=== PATIENT | female | born 1945 | race Caucasian/White ===

== ENCOUNTER → 2018-12-26 | Outpatient (CLI) | payer OTHER | END | disposition home or self-care (01) | LOC: SHCH 10:54 | PROVIDERS: ATTEND Internal Medicine Cardiovascular Disease | DX: I10 Essential (primary) hypertension (principal) | CPT/HCPCS: 93306 ==

== ENCOUNTER 2021-06-22 09:19 | Emergency (ER) | payer MEDICARE, OTHER ==
[~2021-06-22] VITALS: Ht 157.5 cm; Wt 56.7 kg
[2021-06-22] MEDS ORDERED: ACETAMINOPHEN 500 MG TABLET PO SCH (11:00)
[2021-06-22 11:10] LABS: BASOPHILS % (AUTO) 0.3 % (0.0-5.0); HEMATOCRIT 36.7 % (36-48); LYMPHOCYTES % (AUTO) 14.4 % (21.0-51.0); MEAN CORPUSCULAR HEMOGLOBIN 32.5 pg (27.0-33.0); MEAN CORPUSCULAR HGB CONC 33.5 g/dL (32.0-36.0); MEAN CORPUSCULAR VOLUME 96.8 fL (79-99); MONOCYTES % (AUTO) 4.3 % (3.0-13.0); NEUTROPHILS % (AUTO) 80.4 % (40.0-77.0); PLATELET COUNT (AUTO) 184 K/uL (130-400); RED BLOOD CELL COUNT(AUTO) 3.79 MIL/uL (4.00-5.50)
[2021-06-22 11:15] LABS: CREATININE 0.7 mg/dL (0.5-1.5); POTASSIUM 4.6 mmol/L (3.5-5.1)
[2021-06-22 11:19] LABS: ALBUMIN 4.2 g/dL (3.5-5.0); BILIRUBIN,TOTAL 0.4 mg/dL (0.2-1.0); TOTAL PROTEIN, SERUM 7.7 g/dL (6.0-8.3)
[2021-06-22 12:36] VITALS: BP 126/68
[2021-06-22 12:59] LABS: APPEARANCE,URINE Clear (CLEAR); BILIRUBIN,URINE Negative (NEGATIVE); COLOR,URINE Yellow (YELLOW); GLUCOSE, URINE (UA) Negative (NEGATIVE); KETONES,URINE Negative (NEGATIVE); LEUKOCYTE ESTERASE ,URINE Trace (NEGATIVE); NITRATE,URINE Negative (NEGATIVE); OCCULT BLOOD,URINE Negative (NEGATIVE); PH,URINE 7.5 (5.0-8.0); PROTEIN,URINE Negative (NEGATIVE); UROBILINOGEN,URINE 0.2 mg/dL (0.2-1.0)
[2021-06-22] MEDS ORDERED: ACET-66 PO (13:13)
[2021-06-22 13:23] LABS: BACTERIA,URINE Few /HPF (None Seen); RBC,URINE 0-1 /HPF (0-1); SQUAMOUS EPITHELIAL CELL,UR 0-2 /HPF (0-2); WBC,URINE 0-1 /HPF (0-1)
[2021-06-22 14:20] VITALS: BP 126/78
== END 2021-06-22 14:22 | disposition home or self-care (01) ==
LOC: EDH 09:19
DX: M25.511 Pain in right shoulder (principal); G89.29 Other chronic pain; R30.0 Dysuria; I10 Essential (primary) hypertension; E78.00 Pure hypercholesterolemia, unspecified; E11.9 Type 2 diabetes mellitus without complications
CPT/HCPCS: 36415; 70450; 71045; 73030; 80053; 81001; 84484; 85025; 93005

== ENCOUNTER 2022-03-21 20:10 | Emergency (ER) | payer MEDICARE ==
[~2022-03-21] VITALS: Ht 160 cm; Wt 78.0 kg
[~2022-03-21 20:10] MED LIST: ACET-66 PO
[2022-03-21 20:40] LABS: HEMATOCRIT 41.9 % (36-48); MEAN CORPUSCULAR HEMOGLOBIN 32.7 pg (27.0-33.0); MEAN CORPUSCULAR HGB CONC 32.5 g/dL (32.0-36.0); MEAN CORPUSCULAR VOLUME 100.7 fL (79-99); PLATELET COUNT (AUTO) 209 K/uL (130-400); RED BLOOD CELL COUNT(AUTO) 4.16 MIL/uL (4.00-5.50); RED CELL DISTRIBUTION WIDTH 12.4 % (11.0-15.5)
[2022-03-21 20:51] LABS: CREATININE 0.7 mg/dL (0.5-1.5); POTASSIUM 3.9 mmol/L (3.5-5.1)
[2022-03-21 21:00] LABS: ALBUMIN 4.3 g/dL (3.5-5.0); BILIRUBIN,TOTAL 0.2 mg/dL (0.2-1.0); TOTAL PROTEIN, SERUM 7.8 g/dL (6.0-8.3)
[2022-03-21 21:07] LABS: BAND NEUTROPHILS % (MANUAL) 4 % (0-2); EOSINOPHILS % (MANUAL) 3 % (1-6); LYMPHOCYTES % (MANUAL) 15 % (22-44); MAN.DIFF COMMENT-IMPRESSION MANUAL DIFFERENTIAL; MONOCYTES % (MANUAL) 4 % (2-9); REACTIVE LYMPHOCYTES 4 % (0-0); SEGMENTED NEUTROPHILS % 70 % (40-70)
[2022-03-21 21:10] LABS: PLATELET MORPHOLOGY COMMENT PLT CLUMPS PRESENT
[2022-03-21 21:18] LABS: APPEARANCE,URINE Clear (CLEAR); BILIRUBIN,URINE Negative (NEGATIVE); COLOR,URINE Yellow (YELLOW); GLUCOSE, URINE (UA) Negative (NEGATIVE); KETONES,URINE Negative (NEGATIVE); LEUKOCYTE ESTERASE ,URINE Negative (NEGATIVE); NITRATE,URINE Negative (NEGATIVE); OCCULT BLOOD,URINE Negative (NEGATIVE); PROTEIN,URINE Negative (NEGATIVE); UROBILINOGEN,URINE 0.2 mg/dL (0.2-1.0)
[2022-03-21 22:40] VITALS: BP 140/60
== END 2022-03-21 22:47 | disposition home or self-care (01) ==
LOC: EDH 20:10
DX: I10 Essential (primary) hypertension (principal); Z63.4 Disappearance and death of family member; E78.00 Pure hypercholesterolemia, unspecified; Z60.2 Problems related to living alone
CPT/HCPCS: 36415; 71045; 80053; 81003; 84484; 85025; 93005

== ENCOUNTER 2022-06-26 14:03 | Emergency (ER) | payer MEDICARE ==
[~2022-06-26] VITALS: Ht 154.9 cm; Wt 54.4 kg
[2022-06-26] MEDS ORDERED: LACTATED RINGERS 1000ML 1,000 ML IV ONE (14:30)
[2022-06-26 15:01] LABS: BASOPHILS % (AUTO) 0.7 % (0.0-5.0); EOSINOPHILS % (AUTO) 2.3 % (0.0-8.0); LYMPHOCYTES % (AUTO) 19.5 % (21.0-51.0); MEAN CORPUSCULAR HEMOGLOBIN 32.9 pg (27.0-33.0); MEAN CORPUSCULAR HGB CONC 33.3 g/dL (32.0-36.0); MEAN CORPUSCULAR VOLUME 98.7 fL (79-99); NEUTROPHILS % (AUTO) 67.3 % (40.0-77.0); PLATELET COUNT (AUTO) 187 K/uL (130-400); RED BLOOD CELL COUNT(AUTO) 3.95 MIL/uL (4.00-5.50); RED CELL DISTRIBUTION WIDTH 12.3 % (11.0-15.5); WHITE BLOOD COUNT (AUTO) 4.4 K/uL (4.8-10.8)
[2022-06-26 15:09] LABS: CREATININE 0.8 mg/dL (0.5-1.5); POTASSIUM 3.6 mmol/L (3.5-5.1)
[2022-06-26 15:20] LABS: APPEARANCE,URINE CLEAR (CLEAR); BILIRUBIN,URINE NEGATIVE (NEGATIVE); COLOR,URINE YELLOW (YELLOW); GLUCOSE, URINE (UA) NEGATIVE (NEGATIVE); KETONES,URINE NEGATIVE (NEGATIVE); LEUKOCYTE ESTERASE ,URINE NEGATIVE (NEGATIVE); NITRATE,URINE NEGATIVE (NEGATIVE); OCCULT BLOOD,URINE NEGATIVE (NEGATIVE); PH,URINE 7.5 (5.0-8.0); PROTEIN,URINE NEGATIVE (NEGATIVE); UROBILINOGEN,URINE 0.2 mg/dL (0.2-1.0)
[2022-06-26 15:21] LABS: ALBUMIN 4.3 g/dL (3.5-5.0); TOTAL PROTEIN, SERUM 7.7 g/dL (6.0-8.3)
[2022-06-26 15:38] VITALS: BP 148/64
== END 2022-06-26 15:49 | disposition home or self-care (01) ==
LOC: EDH 14:03
DX: R42 Dizziness and giddiness (principal); R53.1 Weakness; R63.0 Anorexia; R61 Generalized hyperhidrosis; F32.A Depression, unspecified; Z63.4 Disappearance and death of family member; E03.9 Hypothyroidism, unspecified; E11.9 Type 2 diabetes mellitus without complications; E78.00 Pure hypercholesterolemia, unspecified; I10 Essential (primary) hypertension; Z68.22 Body mass index [BMI] 22.0-22.9, adult
CPT/HCPCS: 99285; 96360; 71045; 84484; 80053; 85025; 81003; 36415; 93005; J7120

== ENCOUNTER 2022-09-24 17:07 | Emergency (ER) | payer MEDICARE ==
[~2022-09-24] VITALS: Ht 154.9 cm; Wt 52.6 kg
[2022-09-24 17:37] LABS: APPEARANCE,URINE CLEAR (CLEAR); BILIRUBIN,URINE NEGATIVE (NEGATIVE); COLOR,URINE COLORLESS (YELLOW); GLUCOSE, URINE (UA) NEGATIVE (NEGATIVE); KETONES,URINE NEGATIVE (NEGATIVE); LEUKOCYTE ESTERASE ,URINE NEGATIVE Leu/uL (NEGATIVE); NITRATE,URINE NEGATIVE (NEGATIVE); OCCULT BLOOD,URINE NEGATIVE (NEGATIVE); PH,URINE 5.5 (5.0-8.0); PROTEIN,URINE NEGATIVE (NEGATIVE); UROBILINOGEN,URINE 0.2 mg/dL (0.2-1.0)
[2022-09-24 17:39] LABS: RBC,URINE 0-1 /HPF (0-1); SQUAMOUS EPITHELIAL CELL,UR RARE /HPF (0-2); WBC,URINE 0-1 /HPF (0-1)
[2022-09-24] MEDS ORDERED: SULF1TAB42 PO (17:45)
[2022-09-24 17:52] VITALS: BP 121/68
== END 2022-09-24 17:53 | disposition home or self-care (01) ==
LOC: EDH 17:07
DX: N39.0 Urinary tract infection, site not specified (principal); I10 Essential (primary) hypertension; E78.00 Pure hypercholesterolemia, unspecified; E11.9 Type 2 diabetes mellitus without complications; E03.9 Hypothyroidism, unspecified
CPT/HCPCS: 81001

== ENCOUNTER 2022-10-08 20:59 | Emergency (ER) | payer MEDICARE ==
[~2022-10-08] VITALS: Ht 154.9 cm; Wt 53.5 kg
[~2022-10-08 20:59] MED LIST changes: +SULF1TAB42 PO
[2022-10-08] MEDS ORDERED: 0.9%NACL 1000ML 1,000 ML IV ONE (21:30)
[2022-10-08] MEDS ORDERED: ONDANSETRON 4MG INJ IVP ONE (21:30)
[2022-10-08 21:42] LABS: BASOPHILS % (AUTO) 0.6 % (0.0-5.0); EOSINOPHILS % (AUTO) 3.1 % (0.0-8.0); MEAN CORPUSCULAR HEMOGLOBIN 32.3 pg (27.0-33.0); MEAN CORPUSCULAR HGB CONC 32.8 g/dL (32.0-36.0); MEAN CORPUSCULAR VOLUME 98.5 fL (79-99); MONOCYTES % (AUTO) 12.7 % (3.0-13.0); NEUTROPHILS % (AUTO) 54.4 % (40.0-77.0); PLATELET COUNT (AUTO) 183 K/uL (130-400); RED BLOOD CELL COUNT(AUTO) 4.06 MIL/uL (4.00-5.50); RED CELL DISTRIBUTION WIDTH 12.5 % (11.0-15.5); WHITE BLOOD COUNT (AUTO) 4.9 K/uL (4.8-10.8)
[2022-10-08 21:57] LABS: CREATININE 0.8 mg/dL (0.5-1.5); POTASSIUM 4.3 mmol/L (3.5-5.1)
[2022-10-08 22:06] LABS: ALBUMIN 4.2 g/dL (3.5-5.0); TOTAL PROTEIN, SERUM 8.1 g/dL (6.0-8.3)
[2022-10-08 22:18] LABS: APPEARANCE,URINE CLEAR (CLEAR); BILIRUBIN,URINE NEGATIVE (NEGATIVE); COLOR,URINE COLORLESS (YELLOW); GLUCOSE, URINE (UA) NEGATIVE (NEGATIVE); KETONES,URINE NEGATIVE (NEGATIVE); LEUKOCYTE ESTERASE ,URINE NEGATIVE Leu/uL (NEGATIVE); NITRATE,URINE NEGATIVE (NEGATIVE); OCCULT BLOOD,URINE NEGATIVE (NEGATIVE); PH,URINE 7.5 (5.0-8.0); PROTEIN,URINE NEGATIVE (NEGATIVE); UROBILINOGEN,URINE 0.2 mg/dL (0.2-1.0)
[2022-10-08 23:08] VITALS: BP 141/62
== END 2022-10-08 23:18 | disposition home or self-care (01) ==
LOC: EDH 20:59
DX: R11.2 Nausea with vomiting, unspecified (principal); B96.81 Helicobacter pylori [H. pylori] as the cause of diseases classified elsewhere; E03.9 Hypothyroidism, unspecified; E11.9 Type 2 diabetes mellitus without complications; I10 Essential (primary) hypertension; M19.90 Unspecified osteoarthritis, unspecified site; Z88.5 Allergy status to narcotic agent
CPT/HCPCS: 99285; 96374; 71045; 96361 ×2; 84484; 80053; 85025; 83605; 81003; 36415; J7030; J2405; 93005

== ENCOUNTER → 2022-12-01 | Outpatient (CLI) | payer MEDICARE | END | disposition home or self-care (01) | LOC: RAH 09:07 | PROVIDERS: ATTEND Internal Medicine Gastroenterology | DX: N20.0 Calculus of kidney (principal); I70.8 Atherosclerosis of other arteries; R10.9 Unspecified abdominal pain | CPT/HCPCS: 76700 ==

== ENCOUNTER 2024-07-29 22:03 | Emergency (ER) | payer MEDICARE ==
[~2024-07-29] VITALS: Ht 154.9 cm; Wt 54.4 kg
[~2024-07-29 22:03] MED LIST changes: +IBUP-2070 PO
[2024-07-29 22:08] VITALS: BP 171/85; PULSE 81; RESP 20
[2024-07-29 23:36] LABS: SARS-CoV-2, RNA, NAAT NEGATIVE SARS CoV-2 (NEGATIVE)
[2024-07-29 23:37] LABS: RAPID GROUP A STREP negative (NEGATIVE)
[2024-07-29 23:39] LABS: INFLUENZA TYPE A Negative For Type A (NEGATIVE); INFLUENZA TYPE B Negative For Type B (NEGATIVE)
[2024-07-29] MEDS ORDERED: BENZ-39 PO (23:50)
== END 2024-07-30 00:03 | disposition home or self-care (01) ==
LOC: EDH 22:03
DX: J06.9 Acute upper respiratory infection, unspecified (principal); I10 Essential (primary) hypertension; E11.9 Type 2 diabetes mellitus without complications; Z20.822 Contact with and (suspected) exposure to COVID-19; Z90.89 Acquired absence of other organs; Z79.899 Other long term (current) drug therapy; Z98.890 Other specified postprocedural states; Z88.8 Allergy status to other drugs, medicaments and biological substances
CPT/HCPCS: 87635; 87804; 87880

== ENCOUNTER → 2025-03-10 | Outpatient (CLI) | payer MEDICARE ==
[~2025-03-10] MED LIST changes: +BENZ-39 PO
--- NOTE | 2025-03-10 09:37 | HMCIMG ---
UPPER GI TRACT, WO KUB REASON: DYSPHAGIA, UNSPECIFIED. COMPARISON: None TECHNIQUE: Biphasic upper GI series study was performed. FINDINGS: There is no obstruction to the antegrade passage of barium from mouth to jejunum. A normal esophageal stripping wave is seen. 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 There is no evidence of hiatal hernia. Gastroesophageal reflux is seen to the level of mid thoracic esophagus. Stomach is well distended without ulceration or mass lesion with is seen. Duodenal bulb and duodenal sweep unremarkable. 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 Gastroesophageal reflux to level of mid thoracic esophagus.
== END | disposition home or self-care (01) ==
LOC: RAH 08:50
PROVIDERS: ATTEND Internal Medicine Gastroenterology
DX: K21.9 Gastro-esophageal reflux disease without esophagitis (principal); K22.89 Other specified disease of esophagus; K31.89 Other diseases of stomach and duodenum; R13.10 Dysphagia, unspecified
CPT/HCPCS: 74240

== ENCOUNTER 2025-03-25 10:09 | Observation (INO) | payer MEDICARE ==
[~2025-03-25] VITALS: Ht 154.9 cm; Wt 54.9 kg
--- NOTE | 2025-03-25 10:23 | NUR ---
PT JUST NOW PLACED IN MY ED BED 12
--- NOTE | 2025-03-25 10:41 | NUR ---
BLOOD COLLECTED VIA IV, LABELED AND SENT TO LAB
--- NOTE | 2025-03-25 10:42 | NUR ---
PT WAS CLEANED D/T LIQUID STOOL (POST BOWEL PREP) BY SRINATH GOMEZ AND SALMA MILNER.
[2025-03-25 10:50] LABS: BASOPHILS # (AUTO) 0.02 K/uL (0.00-0.20); BASOPHILS % (AUTO) 0.3 % (0.0-5.0); HEMATOCRIT 36.3 % (36-48); IMMATURE GRANULOCYTE ABSOLUTE 0.02 K/uL (0-1); LYMPHOCYTES # (AUTO) 0.6 K/uL (1.0-4.8); LYMPHOCYTES % (AUTO) 8.8 % (21.0-51.0); MEAN CORPUSCULAR HEMOGLOBIN 32.7 pg (27.0-33.0); MEAN CORPUSCULAR HGB CONC 33.9 g/dL (32.0-36.0); MEAN CORPUSCULAR VOLUME 96.5 fL (79-99); MONOCYTES # (AUTO) 0.4 K/uL (0.1-1.0); MONOCYTES % (AUTO) 6.4 % (3.0-13.0); NEUTROPHILS # (AUTO) 5.7 K/uL (1.8-7.7); NEUTROPHILS % (AUTO) 84.2 % (40.0-77.0); PLATELET COUNT (AUTO) 206 K/uL (130-400); RED BLOOD CELL COUNT(AUTO) 3.76 MIL/uL (4.00-5.50); WHITE BLOOD COUNT (AUTO) 6.7 K/uL (4.8-10.8)
--- NOTE | 2025-03-25 10:54 | ERN ---
ED Note History of Present Illness Stated Complaint: LEG CRAMPS Chief Complaint: Altered Mental Status Time Seen by MD: 10:14 Time Seen by Midlevel: 10:14 Dictation: 79-year-old female presents to the ED for evaluation of altered mental status. Patient initially came in complaining of cramping to bilateral lower extremities. Patient has been on a bowel prep according to family for the past two days in order to get colonoscopy done this morning. Reports she has been having a lot of loose stools having to go constantly. Went to the procedure and was sent here due to her altered mental status. Family members deny any fall, trauma, head injury. Past medical history includes HTN, DM. Allergies: Coded Allergies: No Known Drug Allergies (Unverified Allergy, Unknown, 06/22/21) acetaminophen (Unverified Allergy, Unknown, VOMITING, 10/08/22) hydrocodone (Unverified Allergy, Unknown, VOMITING, 10/08/22) meperidine (Unverified Allergy, Unknown, VOMITING, 10/08/22) Home Meds Active Scripts Acyclovir (Acyclovir) 800 Mg Tablet, 1 TAB PO 3Xday for 3 Days, #9 TAB 0 Refills Prov:DEJA LOUIE 03/26/25 Sodium Chloride (Sodium Chloride) 1,000 Mg Tab, 2 TAB PO TID for 5 Days, #15 TAB 0 Refills Prov:DEJA LOUIE 03/26/25 Reported Medications Paroxetine HCl (Paroxetine ER) 25 Mg Tab.er.24h, 1.5 TAB PO DAILY for 30 Days, #30 TAB 0 Refills 03/25/25 Metformin HCl (Metformin HCl) 500 Mg Tablet, 1 TAB PO BID for 30 Days, #60 TAB 0 Refills 03/25/25 Amlodipine Besylate (Amlodipine Besylate) 2.5 Mg Tablet, 1 TAB PO DAILY for 30 Days, #30 TAB 0 Refills 03/25/25 Metoprolol Succinate (Metoprolol Succinate) 25 Mg Tab.er.24h, 1 TAB PO DAILY for 30 Days, #30 TAB 0 Refills 03/25/25 Rosuvastatin Calcium (Rosuvastatin Calcium) 20 Mg Tablet, 20 MG PO HS, TAB 03/25/25 Ubidecarenone (Coq-10) 100 Mg Capsule, 100 MG PO DAILY, CAP 03/25/25 Discontinued Scripts Ibuprofen (Ibuprofen) 600 Mg Tablet, 600 MG PO Q6H PRN for PAIN, #30 TAB Prov:CHARBEL GIBBONS V ARC CUTTER PLASMA ARC 06/08/23 Acetaminophen (Tylenol) 500 Mg Tab, 500 MG PO Q6HPRN PRN for PAIN LEVEL 1 TO 5 for 7 Days, #30 TAB Prov:ANDRZEJ CHRISTENSEN MD 06/22/21 Benzonatate (Tessalon Perles) 100 Mg Cap, 100 MG PO TID for cough, #30 CAP 0 Refills Prov:DIDIER ROBERT 07/29/24 Sulfamethoxazole/Trimethoprim (Bactrim Ds Tablet) 1 Each Tablet, 1 TAB PO BID for 7 Days, #14 TAB 0 Refills Prov:ELA MULLINS TRACK MOVING MACHINE OPERATOR 09/24/22 Past Medical History Past Medical History: Diabetes-Type II, Hypertension Additional Past Medical Hx: IBS Surgical History: Tonsillectomy Surgical History Other: COLONOSCOPY Social History: Negative, Lives alone RN Note Reviewed/Agreed w/PFSH: Yes Review of System Dictation CONSTITUTIONAL: Negative except for HPI HEAD/FACE: Negative except for HPI EENT: Negative except for HPI RESPIRATORY: Negative except for HPI GASTROINTESTINAL/ABDOMINAL: Negative except for HPI GENITOURINARY: Negative except for HPI MUSCULOSKELETAL: Negative except for HPI INTEGUMENTARY: Negative except for HPI NEUROLOGICAL/PSYCH: Negative except for HPI HEMATOLOGIC/LYMPHATIC: Negative except for HPI All Systems Negative, Except as noted above. 13 point review of systems assessed and all negative except for above. Review of Systems: was completed Initial Vital Sign VS Vital Signs Date Time Temp Pulse Resp B/P (MAP) Pulse Ox O2 Delivery O2 Flow Rate FiO2 03/25/25 11:00 75 18 119/63 92 Room Air* 0 21 03/25/25 15:50 98.2 Physical Exam Dictation Vital Signs reviewed General Appearance: no acute distress, well developed, nourished. Head and Face: non-traumatic. Eyes: PERRL, pink conjunctivas, eyelid no trauma, anterior chamber with arcus senilis. Ears: Pinnas intact and no signs of trauma or erythema ear canals clear and no discharge TM no erythema Nose: No discharge, no bleeding. Oropharynx: Mouth normal, tongue pink, pharynx clear,no erythema, tonsils no exudates, no abscesses noted, mucous membrane moist Neck: Supple, non-tender, no thyromegaly, no masses, no JVD, no bruits Breast:Deferred Chest:No tenderness, no crepitus, no paradoxical movement, no retractions Lungs:Clear, well-ventilated, symmetric, no rales, no wheezing, no rhonchi, no stridor, good breath sounds bilaterally Heart: Regular rate, regular rhythm, no murmur, no gallops Vascular: no peripheral edema, Abdomen: Soft, positive bowel sounds, nondistended, no guarding, nontender, no rebound, no masses no hepatomegaly, no splenomegaly, no Cardoza's sign, no hernias. Rectal: Deferred Genital: Deferred Neurological: Normal speech, motor function intact, sensory function intact Musculoskeletal: Neck nontender, full range of motion, back nontender, full range of motion, Extremities: nontender, full range of motion Skin: Color pink, dry, no turgor, no rash, no lacerations, no abrasions, no contusions. Lymphatic: Deferred Results (Laboratory/Radiology) Laboratory/Radiology Labs Reviewed?: Yes X-RAY Comment: PATIENT: JAMES MAXWELL MR#: [id number] : 1945 SEX: F AGE: 79 LOCATION: [facility] ORDER 1035 STATUS: [facility] REPORT#: [id number] SERVICE 1031 REASON: AMS ORDERING PHYSICIAN: IDDIER ROBERT PROCEDURE: CXR1VW - CHEST 1VW Exam Type: CHEST 1VW Clinical Information: AMS Comparison: None Findings: The lungs are clear of infiltrates. The heart is normal in size. The bony and soft tissue structures of the chest are unremarkable. Impression: Clear lungs. DICTATED BY: FITO MONTANA MD DATE: 03/25/25 122 ELECTRONICALLY SIGNED BY: FITO MONTANA MD DATE: 03/25/251224 CT Scan Comment: PATIENT: JAMES MAXWELL MR#: [id number] : 1945 SEX: F AGE: 79 LOCATION: [facility] ORDER 1050 STATUS: REG ER REPORT#: [id number] SERVICE 1049 REASON: AMS ORDERING PHYSICIAN: DIDIER ROBERT PROCEDURE: HEAD WO - CT HEAD/BRAIN W/O CONTRAST Exam Type: CT HEAD/BRAIN W/O CONTRAST Clinical Information: AMS Comparison: None CT Dose Index (CTDI): 57.33 mGy Dose Length Product (DLP): 956.79 total mGy-cm Findings: The examination is unremarkable. Moon-white matter junction is preserved. No intra or extra axial lesions or fluid collections are seen. Specifically, moon and white matter are normal in signal characteristics with normal caliber of ventricles and periventricular cisterns with no evidence of intra or or extra-axial hemorrhage, lacunar infarct, or major territorial infarct, mass, or other abnormality. There are no infarcts. There are no hemorrhages. Periventricular white matter locations are preserved. The orbital contents and structures of the posterior fossa are intact. Impression: Normal CT of the head. This study was performed using dose reduction techniques to include automated exposure control and/or adjustment of the mA and/or kV according to patient size. DICTATED BY: FITO MONTANA MD DATE: 03/25/25 1159 ELECTRONICALLY SIGNED BY: FITO MONTANA MD DATE: 03/25/25 1202 ED Course ED Course 1300 spoke with benchmark and agrees with admission Medical Decision Making MDM MDM: Differential diagnosis: Altered mental status, electrolyte abnormality, AMI, pneumonia, UTI, encephalopathy Rationale: Tests considered and ordered secondary to shared decision making include: Previous outside records reviewed: Old ER visits. Risk of complication and/or morbidity or mortality of patient management: None Medications-Per medication reconciliation Need for hospitalization: Patient does meet criteria for hospitalization. Need for emergency major/minor surgery: No There are no social concerns with this patient. Prescription drug management Prescriptions will include symptomatic care Patient's prior external medical records from other ER visits were reviewed by me as indicated. Prior testing and results from previous visits were reviewed. Prior tests were taken into account with medical decision making and resource utilization, independent historian/historians were used to obtain complete medical history. I independently interpreted the test that were performed, results were reviewed by me and considered findings on radiology if ordered. Medical management and examination interpretation discussions were had by me with other qualified healthcare professionals as indicated for the patient's care. DX & DISP Disposition: Inpatient Decision to Admit Date: March 25, 2025 Decision to Admit Time: 11:00 Departure Impression: Primary Impression: AMS (altered mental status) Additional Impressions: Hyponatremia, Elevated CK Condition: Stable Scripts Acyclovir (Acyclovir) 800 Mg Tablet 1 TAB PO 3Xday for 3 Days, #9 TAB 0 Refills Prov: DEJA LOUIE 03/26/25 Sodium Chloride (Sodium Chloride) 1,000 Mg Tab 2 TAB PO TID for 5 Days, #15 TAB 0 Refills Prov: DEJA LOUIE 03/26/25 Referrals: RITA COBOS MD (PCP) I have reviewed the case, and I agree with, Diagnosis and Plan I performed a substantive portion of the visit. I have reviewed and personally made and approve the management plan that is documented in the notes by myself with CORTNEY/resident. I acknowledged full responsibility for the patient's management plan. DIDIER ROBERT March 25, 2025 10:54 ABNER BOSCH DO March 31, 2025 07:45
[2025-03-25 10:55] LABS: APPEARANCE,URINE CLEAR (CLEAR); BILIRUBIN,URINE NEGATIVE (NEGATIVE); COLOR,URINE LIGHT-YELLOW (YELLOW); GLUCOSE, URINE (UA) NEGATIVE (NEGATIVE); KETONES,URINE NEGATIVE (NEGATIVE); LEUKOCYTE ESTERASE ,URINE NEGATIVE Leu/uL (NEGATIVE); MUCUS,URINE RARE LPF (None Seen); NITRATE,URINE NEGATIVE (NEGATIVE); OCCULT BLOOD,URINE NEGATIVE (NEGATIVE); PROTEIN,URINE 10 mg/dL (NEGATIVE); UROBILINOGEN,URINE 0.2 mg/dL (0.2-1.0); WBC,URINE 0-1 /HPF (0-1)
[2025-03-25 10:57] LABS: CREATININE 0.6 mg/dL (0.5-1.0); POTASSIUM 3.7 mmol/L (3.5-5.1)
[2025-03-25 11:10] LABS: PHOSPHORUS 4.2 mg/dL (2.5-4.9)
[2025-03-25 11:11] LABS: AMMONIA < 10 umol/L (11-32)
[2025-03-25 11:12] LABS: ALBUMIN 4.5 g/dL (3.5-5.0); BILIRUBIN,TOTAL 0.6 mg/dL (0.2-1.0); TOTAL PROTEIN, SERUM 7.9 g/dL (6.0-8.3)
--- NOTE | 2025-03-25 11:44 | NUR ---
PT JUST RETURNED FROM CT SCAN
--- NOTE | 2025-03-25 12:02 | HMCIMG ---
Exam Type: CT HEAD/BRAIN W/O CONTRAST Clinical Information: AMS Comparison: None CT Dose Index (CTDI): 57.33 mGy Dose Length Product (DLP): 956.79 total mGy-cm Findings: The examination is unremarkable. Moon-white matter junction is preserved. No intra or extra axial lesions or fluid collections are seen. Specifically, moon and white matter are normal in signal characteristics with normal caliber of ventricles and periventricular cisterns with no evidence of intra or or extra-axial hemorrhage, lacunar infarct, or major territorial infarct, mass, or other abnormality. There are no infarcts. There are no hemorrhages. Periventricular white matter locations are preserved. The orbital contents and structures of the posterior fossa are intact. Impression: Normal CT of the head. This study was performed using dose reduction techniques to include automated exposure control and/or adjustment of the mA and/or kV according to patient size.
--- NOTE | 2025-03-25 12:02 | EKG ---
[facility] Test Date: 2025-03-25 Test Time: 10:57:36 Pat Name: JAMES MAXWELL Department: ED Room: 430 Gender: F Pomologist: [id number] : 1945 Requested By: DIDIER ROBERT Order Number: [id number] Reading MD: Inga Martin Measurements Intervals [place] Rate: 69 P: 59 [place]: 157 QRS: -15 QRSD: 86 T: -3 QT: 417 QTc: 448 Interpretive Statements Sinus rhythm Left ventricular hypertrophy Compared to ECG 06/08/2023 15:52:00 Left ventricular hypertrophy now present Electronically Signed On 03-26-2025 09:19:03 CDT by Inga Martin Please click the below link to view image of tracing.
[2025-03-25] MEDS: 0.9%NACL 1000ML 1,000 ML IV STA (12:03)
--- NOTE | 2025-03-25 12:25 | HMCIMG ---
Exam Type: CHEST 1VW Clinical Information: AMS Comparison: None Findings: The lungs are clear of infiltrates. The heart is normal in size. The bony and soft tissue structures of the chest are unremarkable. Impression: Clear lungs.
[2025-03-25] MEDS ORDERED: acetaMINOPHEN 325 MG TAB PO PRN (13:30)
[2025-03-25] MEDS ORDERED: acetaMINOPHEN 650 MG SUPPOSITORY RC PRN (13:30)
--- NOTE | 2025-03-25 13:52 | NUR ---
PJ LUNDBERG WAS JUST IN TO SEE THE PT.
--- NOTE | 2025-03-25 16:18 | HP ---
[facility] HISTORY & PHYSICAL Date Patient Seen: March 25, 2025 Time of Visit: 16:18 Supervising Physician: Nicholas Bajwa MD Primary Care Physician: Manolo Oneill MD Outpatient Specialists: [ ] Inpatient Consults: n/a PROBLEM LIST: Acute metabolic encephalopathy, POA vs CVA Hyponatremia Hyperglycemia Hypomagnesemia Mild rhabdomyolysis Dehydration Neutrophilia Protein urea HPI: This is a 79-year-old female with a past medical history of type 2 diabetes mellitus, IBS, who was recently prepping x2 days for a colonoscopy today. On arrival to outpatient colonoscopy Center patient procedure was deferred due to altered mental status. Patient was confused according to family not at baseline. She was recommended to follow up at the ED for eval. In the ED patient was hemodynamically stable saturating 97% on room air and afebrile. CBC pertinent for neutrophilia with neutrophils 84.2. Chemistries showed a sodium of 127 chloride of 91 BUN of five random glucose 150 mg/dL magnesium of 1.50 alkaline phosphatase of 47 ammonia less than 10 CK of 181 troponin of less than four albumin of 4.5 and total prominence in the 7.9. Chest x-ray showed clear lungs. On CT of the head and brain without contrast showed normal study. We will admit patient to medical floor continue with light NS IV fluid hydration. We will order for an MRI of the brain without contrast to rule out possible CVA. Clinic care informed to patient's has been which verbalized understanding and in agreement. PAST MEDICAL HX: see above PAST SURGICAL HX: noncontributory SOCIAL HISTORY: No tobacco, ETOH, or illicit drug use Coded Allergies: No Known Drug Allergies (Unverified Allergy, Unknown, 06/22/21) acetaminophen (Unverified Allergy, Unknown, VOMITING, 10/08/22) hydrocodone (Unverified Allergy, Unknown, VOMITING, 10/08/22) meperidine (Unverified Allergy, Unknown, VOMITING, 10/08/22) REVIEW OF SYSTEMS: 12 point ROS reviewed with patient. Pertinent positives mentioned above. Otherwise negative. PHYSICAL EXAM: GENERAL awake alert and oriented x1, name. HEENT: EOMI, Sclera non icteric, moist mucosa NECK: Supple, no JVD, trachea midline LUNGS: Clear breath sounds bilaterally. No wheezes HEART: Regular rate and rhythm. Normal S1 and S2, without murmurs ABD: Abdomen soft, nontender. Bowel sounds present EXT: No clubbing cyanosis or edema NEURO: Alert and oriented to person, follows commands Vital Signs (last 8hr) Date Time Temp Pulse Resp B/P (MAP) Pulse Ox O2 Delivery O2 Flow Rate FiO2 03/25/25 15:50 98.2 81 16 102/61 97 Room Air* 0 21 LABS: Hematology Labs: Test 03/25/25 10:35 Range/Units White Blood Count 6.7 4.8-10.8 K/uL Red Blood Count 3.76 L 4.00-5.50 MIL/uL Hemoglobin 12.3 12.0-16.0 g/dL Hematocrit 36.3 36-48 % Mean Corpuscular Volume 96.5 79-99 fL Mean Corpuscular Hemoglobin 32.7 27.0-33.0 pg Mean Corpuscular Hemoglobin Concent 33.9 32.0-36.0 g/dL Red Cell Distribution Width 12.0 11.0-15.5 % Platelet Count 206 130-400 K/uL Mean Platelet Volume 8.9 7.5-10.5 fL Immature Granulocyte % (Auto) 0.3 0-1 % Neutrophils (%) (Auto) 84.2 H 40.0-77.0 % Lymphocytes (%) (Auto) 8.8 L 21.0-51.0 % Monocytes (%) (Auto) 6.4 3.0-13.0 % Eosinophils (%) (Auto) 0.0 0.0-8.0 % Basophils (%) (Auto) 0.3 0.0-5.0 % Neutrophils # (Auto) 5.7 1.8-7.7 K/uL Lymphocytes # (Auto) 0.6 L 1.0-4.8 K/uL Monocytes # (Auto) 0.4 0.1-1.0 K/uL Eosinophils # (Auto) 0.00 0.00-0.70 K/uL Basophils # (Auto) 0.02 0.00-0.20 K/uL Absolute Immature Granulocyte (auto 0.02 0-1 K/uL Nucleated Red Blood Cells 0.0 0.0-0.19 % White Cell Morphology Comment See comments Chemistry Labs: Test 03/25/25 10:48 03/25/25 10:35 Range/Units Phosphorus Level 4.2 2.5-4.9 mg/dL Magnesium Level 1.50 L 1.80-2.40 mg/dL Ammonia < 10 L 11-32 umol/L Sodium Level 127 L 136-145 mmol/L Potassium Level 3.7 3.5-5.1 mmol/L Chloride Level 91 L 101-111 mmol/L Carbon Dioxide Level 29 21-32 mmol/L Blood Urea Nitrogen 5 L 7-18 mg/dL Creatinine 0.6 0.5-1.0 mg/dL Glomerular Filtration Rate Calc 92 >90 mL/min Random Glucose 150 H 70-105 mg/dL Total Calcium 8.7 8.5-10.1 mg/dL Total Bilirubin 0.6 0.2-1.0 mg/dL Aspartate Amino Transf (AST/SGOT) 35 10-37 U/L Alanine Aminotransferase (ALT/SGPT) 29 12-78 U/L Alkaline Phosphatase 47 L 50-136 U/L Total Creatine Kinase 581 #*H 21-232 U/L Troponin I High Sensitivity < 4 L 4-50 ng/L Total Protein 7.9 6.0-8.3 g/dL Albumin 4.5 3.5-5.0 g/dL DIAGNOSTICS / RADIOLOGY RESULTS: IMAGING REPORT Signed PATIENT: JAMES MAXWELL MR#: [id number] : 1945 SEX: F AGE: 79 LOCATION: [facility] ORDER 1050 STATUS: [facility] REPORT#: [id number] SERVICE 1049 REASON: AMS ORDERING PHYSICIAN: DIDIER ROBERT PROCEDURE: HEAD WO - CT HEAD/BRAIN W/O CONTRAST Exam Type: CT HEAD/BRAIN W/O CONTRAST Clinical Information: [facility] Comparison: None CT Dose Index (CTDI): 57.33 mGy Dose Length Product (DLP): 956.79 total mGy-cm Findings: The examination is unremarkable. Moon-white matter junction is preserved. No intra or extra axial lesions or fluid collections are seen. Specifically, moon and white matter are normal in signal characteristics with normal caliber of ventricles and periventricular cisterns with no evidence of intra or or extra-axial hemorrhage, lacunar infarct, or major territorial infarct, mass, or other abnormality. There are no infarcts. There are no hemorrhages. Periventricular white matter locations are preserved. The orbital contents and structures of the posterior fossa are intact. Impression: Normal CT of the head. This study was performed using dose reduction techniques to include automated exposure control and/or adjustment of the mA and/or kV according to patient size. DICTATED BY: FITO MONTANA MD DATE: 03/25/25 1159 ELECTRONICALLY SIGNED BY: FITO MONTANA MD DATE: 03/25/25 1202 PLAN Admit to medical-surgical with tele MRI of the brain Continue NS at 75 mL/hour Monitor electrolytes and replace accordingly. Ammonia level Ultrasound carotids broad-spectrum antibiotic with Rocephin 2 g Q 24 hours IV PT eval and treat Case management eval for DC planning NEURO: Minimize central acting medications as possible. Maintain fall precautions, adequate lighting during the day PULMONARY: Supplemental 02 as needed. Maintain aspiration precautions at all times CARDIOVASCULAR: Follow hemodynamics. Vital signs per facility protocol GI & NUTRITION: Continue with nutritional support. Continue stool softeners and laxatives as needed. KIDNEYS & ELECTROLYTES: Strict monitoring of intake, output and overall fluid balance. Avoid nephrotoxic medications to the extent possible. Medications to be dosed according to renal function. Monitor electrolytes and replace as needed ENDOCRINE: Maintain blood glucose between 100-180 at all times. Hypoglycemia protocol in place INFECTIOUS DISEASE: Trend temperature, WBC and procalcitonin level Follow cultures, deescalate antibiotics as soon as possible. Panculture if new onset fever ONCOLOGY/HEMATOLOGY/COAGULATION: Monitor for s/s of bleeding Monitor hemoglobin, coagulation studies as needed SKIN: Pressure ulcer prevention per facility protocol Specialty mattress ORTHO/REHAB: Continue PT/OT Prophylaxis: Continue GI and DVT prophylaxis Code Status: Full Resuscitation Disposition: TBD Other: Total patient care time exceeds 35 minutes excluding all procedures. ATTESTATION BY PHYSICIAN I attest that I reviewed and discussed the case with the Physician Manager Research Development as well as agree with the Physician Manager Research Development's findings, plans of care, and documentation above. Nicholas Canales MD, NELLY J ARNP March 25, 2025 16:18
[2025-03-25] MEDS ORDERED: MAGNESIUM 2GM PREMIX 50ML 50 ML IV PRN (16:30)
[2025-03-25] MEDS: INSULIN humuLIN R 100 UNIT/ML 3ML SQ SCH (16:30)
[2025-03-25] MEDS ORDERED: PoTASSium chl 10% ELIXIR 20MEQ 20 MEQ/15 ML UDCUP PO PRN (16:30)
[2025-03-25] MEDS ORDERED: PoTASSium chloRIDE 20MEQ ER 20 MEQ ERTAB PO PRN (16:30)
[2025-03-25] MEDS ORDERED: PoTASSium chloRIDE 20MEQ/100ML 100 ML IV PRN ×2 (16:30)
--- NOTE | 2025-03-25 16:45 | NUR ---
PR Slides FOR CAROTIDS BEING DOEN AT THIS TIME.
[2025-03-25] MEDS: CEFTRIAXONE 2GM VIAL IVP SCH (16:50)
--- NOTE | 2025-03-25 19:00 | NUR ---
SPOUSE CAME TO VISIT AGAIN FOR A BIT BUT WILL BE LEAVING. SHE IS SITTING ON EDGE OF STRETCHER AND WAS PROVIDED A SANDWHICH D/T HER MEAL GETING COLD DURING HER SLEEP. SHE WAS AWOKEN FOR IT BUT DRIFTED BACK TO SLEEP.
--- NOTE | 2025-03-25 19:15 | NUR ---
MEDICATION RECONCILIATION: NO MEDS BROUGHT IN BY PT/FAMILY OR SENT BY GI CLINIC THAT SENT PT.
--- NOTE | 2025-03-25 19:15 | NUR ---
REPORT ENDORSED TO SOHEILA GALLEGO.
[2025-03-25] MEDS: 0.9%NACL 1000ML 1,000 ML IV SCH (20:19)
[2025-03-25 22:58] VITALS: BP 144/59; PULSE 81; RESP 19; TEMP 98.2
[2025-03-25] MEDS ORDERED: METF-444 PO (23:36)
[2025-03-25] MEDS ORDERED: AMLO2.5T4 PO (23:36)
[2025-03-25] MEDS ORDERED: METO-408 PO (23:36)
[2025-03-25] MEDS ORDERED: PARO25TA22 PO (23:36)
[2025-03-25] MEDS ORDERED: UBID100C10 PO (23:36)
[2025-03-25] MEDS ORDERED: ROSU20TA98 PO (23:36)
[2025-03-26 04:00] VITALS: BP 108/49; PULSE 73; RESP 19; TEMP 98.4
[2025-03-26 04:47] LABS: BASOPHILS # (AUTO) 0.01 K/uL (0.00-0.20); BASOPHILS % (AUTO) 0.1 % (0.0-5.0); EOSINOPHILS # (AUTO) 0.03 K/uL (0.00-0.70); EOSINOPHILS % (AUTO) 0.4 % (0.0-8.0); HEMATOCRIT 29.9 % (36-48); IMMATURE GRANULOCYTE ABSOLUTE 0.02 K/uL (0-1); LYMPHOCYTES # (AUTO) 1.2 K/uL (1.0-4.8); LYMPHOCYTES % (AUTO) 15.6 % (21.0-51.0); MEAN CORPUSCULAR HEMOGLOBIN 32.7 pg (27.0-33.0); MEAN CORPUSCULAR HGB CONC 34.4 g/dL (32.0-36.0); MEAN CORPUSCULAR VOLUME 94.9 fL (79-99); MONOCYTES # (AUTO) 0.9 K/uL (0.1-1.0); MONOCYTES % (AUTO) 11.9 % (3.0-13.0); NEUTROPHILS # (AUTO) 5.6 K/uL (1.8-7.7); NEUTROPHILS % (AUTO) 71.7 % (40.0-77.0); PLATELET COUNT (AUTO) 183 K/uL (130-400); RED BLOOD CELL COUNT(AUTO) 3.15 MIL/uL (4.00-5.50); WHITE BLOOD COUNT (AUTO) 7.7 K/uL (4.8-10.8)
[2025-03-26 05:14] LABS: CREATININE 0.6 mg/dL (0.5-1.0); POTASSIUM 3.5 mmol/L (3.5-5.1); THYROID STIMULATING HORMONE 0.98 uIU/mL (0.36-3.74)
[2025-03-26 05:24] LABS: B-TYPE NATRIURETIC PEPTIDE 128 pg/mL (0-100)
[2025-03-26 08:00] VITALS: BP 96/55; PULSE 56; RESP 16; TEMP 98.2; O2SAT 99
[2025-03-26] MEDS: PANTOPrazole 40 MG TAB DR PO SCH (08:37)
[2025-03-26] MEDS: ENOXAPARIN SODIUM 40 MG/0.4 ML SYRINGE SQ SCH (08:38)
--- NOTE | 2025-03-26 09:34 | HMCIMG ---
Carotid Duplex and color-flow Doppler bilateral Clinical Information: rule out carotid stenosis Comparison: None Findings: Mild bilateral bifurcation plaque is seen. No hemodynamically significant stenosis noted. Left Internal Carotid Artery Peak Systolic Velocity (PSV), Left Internal Carotid to Common Carotid Artery peak systolic velocity ratio, Right Internal Carotid Artery Peak Systolic Velocity (PSV) and Right Internal Carotid to Common Carotid Artery peak systolic velocity ratio, are all within normal limits. External carotid artery velocities normal bilaterally. Bilateral vertebral arteries show normal velocities and waveforms with antegrade flow. Impression: No hemodynamically significant stenosis noted. NASCET CRITERIA. The degree of internal carotid artery stenosis is based on NASCET criteria. Normal is no stenosis. Mild is less than 50% stenosis. Moderate is 50-69% stenosis. Severe is 70% to 99% stenosis. Total occlusion is no detectable patent lumen.
--- NOTE | 2025-03-26 11:15 | NUR ---
DCP: HOME Pt currently lives with her Rishi Hope [phone] in their own home. Pt reports having a walker at home. Pt denies any insecurities with senior care, food, and/or utilities. Pt does not have any provider or home health services at this time. PCP is Dr. Manolo Oneill and uses [facility] for any RX needs. At [place] pt wants to go back home and family will assist with transportation. Addendum: 03/26/25 at 1121 by ANAY CASTRO SS Amended: Links added.
--- NOTE | 2025-03-26 12:51 | HMCIMG ---
Exam Type: MR BRAIN WO CON Clinical Information: ams rule out CVA Comparison: None Technique: T1 weighed sagittal, T1-weighted axial, T2-weighted axial, diffusion, apparent diffusion, exponential diffusion weighted axial, T2-weighted FLAIR sagittal, coronal and axial images of the brain. Findings: The examination is unremarkable. Moon-white matter junction is preserved. No intra or extra axial lesions or fluid collections are seen. There are no infarcts. There are no hemorrhages. Signal intensity is normal throughout the periventricular white matter locations. The orbital contents and structures of the posterior fossa are intact. The sella and its contents and the structures of the skull base are intact as well. Impression: Normal exam without gadolinium.
[2025-03-26 16:00] VITALS: BP 122/54; PULSE 77; RESP 19; TEMP 98.1
[2025-03-26] MEDS ORDERED: SODI100037 PO (16:19)
--- NOTE | 2025-03-26 16:21 | DS ---
[facility] DISCHARGE SUMMARY Date Patient Seen: March 26, 2025 Time of Visit: 16:20 Supervising Physician: [Dr. Gerardo] Primary Care Physician: Manolo Oneill MD Outpatient Specialists: [ ] Inpatient Consults: n/a PROBLEM LIST: Acute metabolic encephalopathy, POA resolved Hyponatremia Hyperglycemia Hypomagnesemia Mild rhabdomyolysis Dehydration Neutrophilia Protein urea HOSPITAL COURSE: HPI (per admitting provider) This is a 79-year-old female with a past medical history of type 2 diabetes mellitus, IBS, who was recently prepping x2 days for a colonoscopy today. On arrival to outpatient colonoscopy Center patient procedure was deferred due to altered mental status. Patient was confused according to family not at baseline. She was recommended to follow up at the ED for eval. In the ED patient was hemodynamically stable saturating 97% on room air and afebrile. CBC pertinent for neutrophilia with neutrophils 84.2. Chemistries showed a sodium of 127 chloride of 91 BUN of five random glucose 150 mg/dL magnesium of 1.50 alkaline phosphatase of 47 ammonia less than 10 CK of 181 troponin of less than four albumin of 4.5 and total prominence in the 7.9. Chest x-ray showed clear lungs. On CT of the head and brain without contrast showed normal study. We will admit patient to medical floor continue with light NS IV fluid hydration. We will order for an MRI of the brain without contrast to rule out possible CVA. Clinic care informed to patient's has been which verbalized understanding and in agreement. 03/26 patient is evaluated at bedside. She is feeling much improved with IVF hydration. Diarrhea has resolved. MRI of the brain was unremarkable. Current nausea or vomiting. She is able to tolerate p.o. intake. Her sodium levels are improved. She is discharged home in stable condition, advised to continue oral hydration with electrolytes. Follow-up with PCP for re-evaluation. Follow-up with GI for outpatient colonoscopy as scheduled. The patient was treated for the following problems: ACTIVE PROBLEM LIST FOR THE HOSPITALIZATION: CHRONIC PROBLEMS: continue previous management per PCP unless otherwise indicated TECHNICAL WRITING LEAD/MGR FINDINGS/RECOMMENDATIONS: [ ] PROCEDURES: as mentioned above DISCHARGE MEDICATIONS: Pt hemodynamically stable and afebrile at time of discharge. PCP notified of patients admission, hospital course and discharge. New Medications: Acyclovir (Acyclovir) 800 Mg Tablet 1 TAB PO 3Xday for 3 Days, #9 TAB 0 Refills Sodium Chloride (Sodium Chloride) 1,000 Mg Tab 2 TAB PO TID for 5 Days, #15 TAB 0 Refills Continued Medications: Amlodipine Besylate (Amlodipine Besylate) 2.5 Mg Tablet 1 TAB PO DAILY for 30 Days, #30 TAB 0 Refills Metformin HCl (Metformin HCl) 500 Mg Tablet 1 TAB PO BID for 30 Days, #60 TAB 0 Refills Metoprolol Succinate (Metoprolol Succinate) 25 Mg Tab.er.24h 1 TAB PO DAILY for 30 Days, #30 TAB 0 Refills Paroxetine HCl (Paroxetine ER) 25 Mg Tab.er.24h 1.5 TAB PO DAILY for 30 Days, #30 TAB 0 Refills Rosuvastatin Calcium (Rosuvastatin Calcium) 20 Mg Tablet 20 MG PO HS, TAB Ubidecarenone (Coq-10) 100 Mg Capsule 100 MG PO DAILY, CAP Discontinued Medications: Acetaminophen (Tylenol) 500 Mg Tab 500 MG PO Q6HPRN PRN for PAIN LEVEL 1 TO 5 for 7 Days, #30 TAB Ibuprofen (Ibuprofen) 600 Mg Tablet 600 MG PO Q6H PRN for PAIN, #30 TAB PHYSICAL EXAM: GENERAL awake alert and oriented x1, name. HEENT: EOMI, Sclera non icteric, moist mucosa NECK: Supple, no JVD, trachea midline LUNGS: Clear breath sounds bilaterally. No wheezes HEART: Regular rate and rhythm. Normal S1 and S2, without murmurs ABD: Abdomen soft, nontender. Bowel sounds present EXT: No clubbing cyanosis or edema NEURO: Alert and oriented to person, follows commands FOLLOW-UP: Continue sodium supplement X 5 days. F/U with PCP for repeat sodium level. Follow-up with GI for colonoscopy as scheduled. RECOMMENDATIONS: See Discharge Instructions This case was seen and discussed with my supervising physician. More than 30 minutes spent on discharge process, including evaluation of the patient, discussion with nursing staff, medication reconciliation and follow-up appointments DEJA LOUIE March 26, 2025 16:21
[2025-03-26] MEDS ORDERED: ACYC-138 PO (17:01)
[2025-03-26] MEDS ORDERED: atorVAStatin 40 MG TABLET PO SCH (21:00)
[2025-03-27] MEDS ORDERED: amLODIPine 2.5 MG TAB PO SCH (09:00)
[2025-03-27] MEDS ORDERED: (Ubidecarenone (Coq-10) 100 MG) PO SCH (09:00)
[2025-03-27] MEDS ORDERED: metOPROLol sucCINATE 25 MG TAB.SR.24H PO SCH (09:00)
== END 2025-03-26 18:40 | disposition home or self-care (01) ==
LOC: EDH 10:09 → INTOOBSV 13:04 → EDHIP 13:04 → UNDOADMOB 13:04 → EDHIP 22:33 → 4AH 22:33 → EDHIP 03-26 08:00 → 4AH 03-26 08:00
PROVIDERS: ADMIT Internal Medicine Critical Care Medicine; ATTEND Internal Medicine Critical Care Medicine
DX: G93.41 Metabolic encephalopathy (principal); E87.1 Hypo-osmolality and hyponatremia; E11.65 Type 2 diabetes mellitus with hyperglycemia; E83.42 Hypomagnesemia; I10 Essential (primary) hypertension; M62.82 Rhabdomyolysis; E86.0 Dehydration; D72.0 Genetic anomalies of leukocytes; R80.9 Proteinuria, unspecified; I65.23 Occlusion and stenosis of bilateral carotid arteries; Z79.899 Other long term (current) drug therapy
CPT/HCPCS: 96374; 96361 ×2; 99285; 82550 ×4; 83735; 84100; 84484 ×3; 80053; 82140; 85025 ×2; 82948 ×3; 81001; 36415 ×2; 71045; 70450; 93880; 93005; 96376; 96372; 84443; 80048; 83880; 70551; 97161; 84145; J7030 ×2; J0696 ×2; G0378 ×11; J1650; 96365

== ENCOUNTER 2025-04-19 19:40 | Emergency (ER) | payer MEDICARE ==
[~2025-04-19] VITALS: Ht 154.9 cm; Wt 54.4 kg
[~2025-04-19 19:40] MED LIST changes: -ACET-66 PO; +ACYC-138 PO; +AMLO2.5T4 PO; -BENZ-39 PO; -IBUP-2070 PO; +METF-444 PO; +METO-408 PO; +PARO25TA22 PO; +ROSU20TA98 PO; +SODI100037 PO; -SULF1TAB42 PO; +UBID100C10 PO
--- NOTE | 2025-04-19 20:13 | ERN ---
ED Note History of Present Illness Stated Complaint: SWOLLEN FEET Chief Complaint: Ankle Problem Time Seen by MD: 19:54 Dictation: PATIENT IS A 79-YEAR-OLD FEMALE COMING IN TODAY WITH BILATERAL ANKLE PAIN AND ERYTHEMA LATERALLY ONSET WAS YESTERDAY. NO FEVER NO CHILLS NO NAUSEA VOMITING. NO HISTORY OF TRAUMA. SHE ALSO STATES SHE IS FEELING DEHYDRATED BECAUSE HER MOUTH IS DRY. SHE STATES SHE WAS HOSPITALIZED AT [facility] THREE WEEKS AGO AND BEING PREPPED FOR COLONOSCOPY AND THEY DRIED HER OUT THERE AND SHE DOES NOT THINK SHE HAS RECOVERED. NO FEVER NO CHILLS NO HISTORY OF GOUT. PATIENT NOTED TO BE SOMEWHAT ANXIOUS. Allergies: Coded Allergies: No Known Drug Allergies (Unverified Allergy, Unknown, 06/22/21) acetaminophen (Unverified Allergy, Unknown, VOMITING, 10/08/22) hydrocodone (Unverified Allergy, Unknown, VOMITING, 10/08/22) meperidine (Unverified Allergy, Unknown, VOMITING, 10/08/22) Home Meds Active Scripts Acyclovir (Acyclovir) 800 Mg Tablet, 1 TAB PO 3Xday for 3 Days, #9 TAB 0 Refills Prov:DEJA LUOIE 03/26/25 Sodium Chloride (Sodium Chloride) 1,000 Mg Tab, 2 TAB PO TID for 5 Days, #15 TAB 0 Refills Prov:DEJA LOUIE 03/26/25 Reported Medications Paroxetine HCl (Paroxetine ER) 25 Mg Tab.er.24h, 1.5 TAB PO DAILY for 30 Days, #30 TAB 0 Refills 03/25/25 Metformin HCl (Metformin HCl) 500 Mg Tablet, 1 TAB PO BID for 30 Days, #60 TAB 0 Refills 03/25/25 Amlodipine Besylate (Amlodipine Besylate) 2.5 Mg Tablet, 1 TAB PO DAILY for 30 Days, #30 TAB 0 Refills 03/25/25 Metoprolol Succinate (Metoprolol Succinate) 25 Mg Tab.er.24h, 1 TAB PO DAILY for 30 Days, #30 TAB 0 Refills 03/25/25 Rosuvastatin Calcium (Rosuvastatin Calcium) 20 Mg Tablet, 20 MG PO HS, TAB 03/25/25 Ubidecarenone (Coq-10) 100 Mg Capsule, 100 MG PO DAILY, CAP 03/25/25 Past Medical History Past Medical History: Diabetes-Type II, Hypertension Additional Past Medical Hx: IBS Surgical History: Tonsillectomy Surgical History Other: COLONOSCOPY Social History: Negative, Lives alone History: Not Applicable RN Note Reviewed/Agreed w/PFSH: Yes Review of System Dictation CONSTITUTIONAL: NEGATIVE EXCEPT FOR HPI HEAD/FACE: NEGATIVE EXCEPT FOR HPI EENT: NEGATIVE EXCEPT FOR HPI RESPIRATORY: NEGATIVE EXCEPT FOR HPI GASTROINTESTINAL/ABDOMINAL: NEGATIVE EXCEPT FOR HPI GENITOURINARY: NEGATIVE EXCEPT FOR HPI MUSCULOSKELETAL: NEGATIVE EXCEPT FOR HPI BILATERAL ANKLE PAIN INTEGUMENTARY: NEGATIVE EXCEPT FOR HPI NEUROLOGICAL/PSYCH: NEGATIVE EXCEPT FOR HPI HEMATOLOGIC/LYMPHATIC: NEGATIVE EXCEPT FOR HPI ALL SYSTEMS NEGATIVE, EXCEPT NOTED ABOVE. 13 POINT REVIEW OF SYSTEMS ASSESSED AND ALL NEGATIVE EXCEPT FOR ABOVE. Initial Vital Sign VS Vital Signs Date Time Temp Pulse Resp B/P (MAP) Pulse Ox O2 Delivery O2 Flow Rate FiO2 04/19/25 19:41 98.1 97 20 146/76 97 Room Air 04/19/25 20:20 0 21 Physical Exam Dictation VITAL SIGNS REVIEWED GENERAL APPEARANCE: ALERT, ORIENTED X 3, NO ACUTE DISTRESS, WELL DEVELOPED, NOURISHED. ANXIOUS NO COMPLAINTS OF PAIN HEAD AND FACE: NON-TRAUMATIC. EYES: PERRL, PINK CONJUNCTIVAS, EYELID NO TRAUMA, ANTERIOR CHAMBER WITH ARCUS SENILIS. EARS: PINNAS INTACT AND NO SIGNS OF TRAUMA OR ERYTHEMA EAR CANALS CLEAR AND NO DISCHARGE TM NO ERYTHEMA NOSE: NO DISCHARGE, NO BLEEDING. OROPHARYNX: MOUTH NORMAL, TONGUE PINK, PHARYNX CLEAR,NO ERYTHEMA, TONSILS NO EXUDATES, NO ABSCESSES NOTED, MUCOUS MEMBRANE MOIST NECK: SUPPLE, NON-TENDER, NO THYROMEGALY, NO MASSES, NO JVD, NO BRUITS BREAST:DEFERRED CHEST:NO TENDERNESS, NO CREPITUS, NO PARADOXICAL MOVEMENT, NO RETRACTIONS LUNGS:CLEAR, WELL-VENTILATED, SYMMETRIC, NO RALES, NO WHEEZING, NO RHONCHI, NO STRIDOR, GOOD BREATH SOUNDS BILATERALLY HEART: REGULAR RATE, REGULAR RHYTHM, NO MURMUR, NO GALLOPS VASCULAR: NO PERIPHERAL EDEMA, ABDOMEN: SOFT, POSITIVE BOWEL SOUNDS, NONDISTENDED, NO GUARDING, NONTENDER, NO REBOUND, NO MASSES NO HEPATOMEGALY, NO SPLENOMEGALY, NO SANDS'S SIGN, NO HERNIAS. RECTAL: DEFERRED GENITAL: DEFERRED NEUROLOGICAL: NORMAL SPEECH, MOTOR FUNCTION INTACT, SENSORY FUNCTION INTACT MUSCULOSKELETAL: NECK NONTENDER, FULL RANGE OF MOTION, BACK NONTENDER, FULL RANGE OF MOTION, EXTREMITIES: NONTENDER, FULL RANGE OF MOTION MILD ERYTHEMA TO THE LATERAL MALLEOLUS BILATERALLY FULL RANGE OF MOTION SKIN: COLOR PINK, DRY, NO TURGOR, NO RASH, NO LACERATIONS, NO ABRASIONS, NO CONTUSIONS. LYMPHATIC: DEFERRED Results (Laboratory/Radiology) Laboratory/Radiology Laboratory Tests Test 04/19/25 20:19 04/19/25 20:49 White Blood Count 4.8 K/uL (4.8-10.8) Red Blood Count 3.72 MIL/uL (4.00-5.50) L Hemoglobin 12.1 g/dL (12.0-16.0) Hematocrit 37.3 % (36-48) Mean Corpuscular Volume 100.3 fL (79-99) H Mean Corpuscular Hemoglobin 32.5 pg (27.0-33.0) Mean Corpuscular Hemoglobin Concent 32.4 g/dL (32.0-36.0) Red Cell Distribution Width 12.4 % (11.0-15.5) Platelet Count 212 K/uL (130-400) Mean Platelet Volume 9.0 fL (7.5-10.5) Immature Granulocyte % (Auto) 0.4 % (0-1) Neutrophils (%) (Auto) 56.6 % (40.0-77.0) Lymphocytes (%) (Auto) 26.4 % (21.0-51.0) Monocytes (%) (Auto) 13.1 % (3.0-13.0) H Eosinophils (%) (Auto) 2.7 % (0.0-8.0) Basophils (%) (Auto) 0.8 % (0.0-5.0) Neutrophils # (Auto) 2.7 K/uL (1.8-7.7) Lymphocytes # (Auto) 1.3 K/uL (1.0-4.8) Monocytes # (Auto) 0.6 K/uL (0.1-1.0) Eosinophils # (Auto) 0.13 K/uL (0.00-0.70) Basophils # (Auto) 0.04 K/uL (0.00-0.20) Absolute Immature Granulocyte (auto 0.02 K/uL (0-1) Nucleated Red Blood Cells 0.0 % (0.0-0.19) Sodium Level 138 mmol/L (136-145) Potassium Level 4.2 mmol/L (3.5-5.1) Chloride Level 101 mmol/L (101-111) Carbon Dioxide Level 31 mmol/L (21-32) Blood Urea Nitrogen 13 mg/dL (7-18) Creatinine 0.8 mg/dL (0.5-1.0) Glomerular Filtration Rate Calc 76 mL/min (>90) Random Glucose 110 mg/dL (70-105) H Uric Acid 5.4 mg/dL (2.6-7.2) Total Calcium 9.7 mg/dL (8.5-10.1) Urine Color COLORLESS (YELLOW) Urine Appearance CLEAR (CLEAR) Urine pH 7.0 (5.0-8.0) Urine Specific [place] 1.003 (1.001-1.031) Urine Protein NEGATIVE mg/dL (NEGATIVE) Urine Glucose (UA) NEGATIVE mg/dL (NEGATIVE) Urine Ketones NEGATIVE mg/dL (NEGATIVE) Urine Occult Blood NEGATIVE (NEGATIVE) Urine Nitrate NEGATIVE (NEGATIVE) Urine Bilirubin NEGATIVE mg/dL (NEGATIVE) Urine Urobilinogen 0.2 mg/dL (0.2-1.0) Urine Leukocyte Esterase NEGATIVE Edilia/uL Urine RBC 0-1 /HPF (0-1) Urine WBC 0-1 /HPF (0-1) Urine Squamous Epithelial Cells RARE /HPF (0-2) Urine Bacteria None /HPF (None Seen) Labs Reviewed?: Yes ED Course ED Course Orders Procedure Category Date Status Time Uric Acid LAB 04/19/25 Complete 20:11 Cbc With Differential LAB 04/19/25 Complete 20:11 Basic Metabolic Panel LAB 04/19/25 Complete 20:11 Urinalysis Profile LAB 04/19/25 Complete 20:38 Vital Signs Date Time Temp Pulse Resp B/P (MAP) Pulse Ox O2 Delivery O2 Flow Rate FiO2 04/19/25 20:20 98.1 95 16 145/75 98 Room Air* 0 21 04/19/25 19:41 98.1 97 20 146/76 97 Room Air 2110 LABS UNREMARKABLE FOR ANEMIA INFECTION DEHYDRATION ELECTROLYTE IMBALANCE OR URIC ACID ELEVATION. PATIENT WILL BE DISCHARGED HOME WITH A ACUTE ANKLE SWELLING TOLD TO SEE HER PRIMARY CARE DOCTOR MONDAY WITHOUT Medical Decision Making MDM MEDICAL DISCHARGE MAKING BASED ON BASIC LABS TO INCLUDE URIC ACID FOUR SWELLING OF ANKLES. NO IMAGING INDICATED THERE WAS NO TRAUMA THERE IS NO PAIN NO FEVER NO CHILLS. PATIENT DISCHARGED HOME WITH ANKLE SWELLING AND EDEMA, TOLD ELEVATE LEGS MUCH POSSIBLE SEE YOUR DOCTOR DX & DISP Disposition: Discharge Departure Impression: Primary Impression: Ankle swelling Condition: Stable Additional Instructions: FOLLOW-UP WITH PRIMARY CARE PROVIDER IN 1 TO 2 DAYS. TAKE MEDICATIONS DIRECTED HERE IN THE EMERGENCY ROOM. OKAY TO CONTINUE HOME MEDICATIONS UNLESS OTHERWISE DISCUSSED DURING YOUR VISIT IN THE EMERGENCY ROOM TODAY. RETURN TO YOUR NEAREST EMERGENCY ROOM IF SYMPTOMS WORSEN OR IF THERE IS NO IMPROVEMENT. CALL 911 IF YOU NEED IMMEDIATE ASSISTANCE. TAKE TYLENOL OR MOTRIN [id number] NEEDED AND IF NO CONTRAINDICATIONS ARE PRESENT. INCREASE ORAL HYDRATION. A WOUND CULTURE OR URINE CULTURE WAS ORDERED HERE IN THE EMERGENCY ROOM DEPARTMENT PLEASE FOLLOW-UP WITH PRIMARY CARE PROVIDER AND ADVISE THEM TO GET REPEAT PORTS FROM OUR FACILITY. IF YOU HAD ANY VERONICA WRAP/SPLINTS THAT WERE APPLIED HERE, PLEASE DO NOT REMOVE THEM UNTIL YOU SEE YOUR PRIMARY CARE OR SPECIALTY. ELEVATE LEGS MUCH POSSIBLE. FOLLOW UP WITH YOUR PRIMARY CARE DOCTOR ON MONDAY FOR MANAGEMENT. Referrals: RITA COBOS MD (PCP) Time of Disposition: 21:10 I have reviewed the case, and I agree with, Diagnosis and Plan TRACY BRYAN NP April 19, 2025 20:13
[2025-04-19 20:20] VITALS: BP 145/75; PULSE 95; RESP 16; TEMP 98; O2SAT 98
[2025-04-19 20:30] LABS: BASOPHILS # (AUTO) 0.04 K/uL (0.00-0.20); BASOPHILS % (AUTO) 0.8 % (0.0-5.0); EOSINOPHILS # (AUTO) 0.13 K/uL (0.00-0.70); EOSINOPHILS % (AUTO) 2.7 % (0.0-8.0); HEMATOCRIT 37.3 % (36-48); IMMATURE GRANULOCYTE ABSOLUTE 0.02 K/uL (0-1); LYMPHOCYTES # (AUTO) 1.3 K/uL (1.0-4.8); LYMPHOCYTES % (AUTO) 26.4 % (21.0-51.0); MEAN CORPUSCULAR HEMOGLOBIN 32.5 pg (27.0-33.0); MEAN CORPUSCULAR HGB CONC 32.4 g/dL (32.0-36.0); MEAN CORPUSCULAR VOLUME 100.3 fL (79-99); MONOCYTES # (AUTO) 0.6 K/uL (0.1-1.0); MONOCYTES % (AUTO) 13.1 % (3.0-13.0); NEUTROPHILS # (AUTO) 2.7 K/uL (1.8-7.7); NEUTROPHILS % (AUTO) 56.6 % (40.0-77.0); PLATELET COUNT (AUTO) 212 K/uL (130-400); RED BLOOD CELL COUNT(AUTO) 3.72 MIL/uL (4.00-5.50); RED CELL DISTRIBUTION WIDTH 12.4 % (11.0-15.5); WHITE BLOOD COUNT (AUTO) 4.8 K/uL (4.8-10.8)
[2025-04-19 20:39] LABS: CREATININE 0.8 mg/dL (0.5-1.0); POTASSIUM 4.2 mmol/L (3.5-5.1)
[2025-04-19 20:42] LABS: URIC ACID 5.4 mg/dL (2.6-7.2)
[2025-04-19 20:55] LABS: ADD UA MICROSCOPIC YES; APPEARANCE,URINE CLEAR (CLEAR); BILIRUBIN,URINE NEGATIVE (NEGATIVE); COLOR,URINE COLORLESS (YELLOW); GLUCOSE, URINE (UA) NEGATIVE (NEGATIVE); KETONES,URINE NEGATIVE (NEGATIVE); LEUKOCYTE ESTERASE ,URINE NEGATIVE Leu/uL (NEGATIVE); NITRATE,URINE NEGATIVE (NEGATIVE); OCCULT BLOOD,URINE NEGATIVE (NEGATIVE); PROTEIN,URINE NEGATIVE (NEGATIVE); UROBILINOGEN,URINE 0.2 mg/dL (0.2-1.0)
[2025-04-19 20:56] LABS: MUCUS,URINE RARE LPF (None Seen); RBC,URINE 0-1 /HPF (0-1); SQUAMOUS EPITHELIAL CELL,UR RARE /HPF (0-2); WBC,URINE 0-1 /HPF (0-1)
== END 2025-04-19 21:21 | disposition home or self-care (01) ==
LOC: EDH 19:40
DX: M79.89 Other specified soft tissue disorders (principal)
CPT/HCPCS: 36415; 80048; 81001; 84550; 85025; 99283

== ENCOUNTER 2025-08-20 00:13 | Emergency (ER) | payer MEDICARE ==
[~2025-08-20] VITALS: Ht 154.9 cm; Wt 54.4 kg
[2025-08-20 01:10] VITALS: TEMP 98.2
[2025-08-20 01:27] LABS: APPEARANCE,URINE CLEAR (CLEAR); GLUCOSE, URINE (UA) NEGATIVE (NEGATIVE); LEUKOCYTE ESTERASE ,URINE NEGATIVE Leu/uL (NEGATIVE); NITRATE,URINE NEGATIVE (NEGATIVE); OCCULT BLOOD,URINE NEGATIVE (NEGATIVE)
[2025-08-20 01:34] LABS: ADD UA MICROSCOPIC NO
[2025-08-20] MEDS: 0.9%NACL 1000ML 1,000 ML IV ONE (01:35)
[2025-08-20 01:36] LABS: IMMATURE GRANULOCYTE ABSOLUTE 0.03 K/uL (0-1); NUCLEATED RED BLOOD CELLS 0.0 % (0.0-0.19); PLATELET COUNT (AUTO) 202 K/uL (130-400); RED BLOOD CELL COUNT(AUTO) 3.87 MIL/uL (4.00-5.50); RED CELL DISTRIBUTION WIDTH 12.9 % (11.0-15.5); WHITE BLOOD COUNT (AUTO) 7.6 K/uL (4.8-10.8)
--- NOTE | 2025-08-20 01:36 | ERN ---
ED Note History of Present Illness Stated Complaint: GENERAL BODY WEAKNESS Chief Complaint: Weakness Time Seen by MD: 00:17 Time Seen by Midlevel: 00:17 Dictation: The patient is a 79-year-old female with a history of hypertension and diabetes who presents to the emergency department via EMS with complaints of generalized body weakness this started last night. Patient reports that she feels like she has urinary less frequently. Denies any nausea or vomiting. Denies any diarrhea. Denies any upper respiratory symptoms. Denies chest pain or shortness of breath Allergies: Coded Allergies: No Known Drug Allergies (Unverified Allergy, Unknown, 06/22/21) acetaminophen (Unverified Allergy, Unknown, VOMITING, 10/08/22) hydrocodone (Unverified Allergy, Unknown, VOMITING, 10/08/22) meperidine (Unverified Allergy, Unknown, VOMITING, 10/08/22) Home Meds Active Scripts Acyclovir (Acyclovir) 800 Mg Tablet, 1 TAB PO 3Xday for 3 Days, #9 TAB 0 Refills Prov:DEJA LOUIE 03/26/25 Sodium Chloride (Sodium Chloride) 1,000 Mg Tab, 2 TAB PO TID for 5 Days, #15 TAB 0 Refills Prov:DEJA LOUIE 03/26/25 Reported Medications Paroxetine HCl (Paroxetine ER) 25 Mg Tab.er.24h, 1.5 TAB PO DAILY for 30 Days, #30 TAB 0 Refills 03/25/25 Metformin HCl (Metformin HCl) 500 Mg Tablet, 1 TAB PO BID for 30 Days, #60 TAB 0 Refills 03/25/25 Amlodipine Besylate (Amlodipine Besylate) 2.5 Mg Tablet, 1 TAB PO DAILY for 30 Days, #30 TAB 0 Refills 03/25/25 Metoprolol Succinate (Metoprolol Succinate) 25 Mg Tab.er.24h, 1 TAB PO DAILY for 30 Days, #30 TAB 0 Refills 03/25/25 Rosuvastatin Calcium (Rosuvastatin Calcium) 20 Mg Tablet, 20 MG PO HS, TAB 03/25/25 Ubidecarenone (Coq-10) 100 Mg Capsule, 100 MG PO DAILY, CAP 03/25/25 Past Medical History Past Medical History: Diabetes-Type II, Hypertension Additional Past Medical Hx: IBS Surgical History: Tonsillectomy Surgical History Other: COLONOSCOPY Social History: Negative, Lives alone History: Not Applicable RN Note Reviewed/Agreed w/PFSH: Yes Review of System Dictation Constitutional: Negative for fever,chills, and weight loss Eyes: Negative for injury, pain,redness, and discharge ENT: Negative for injury,pain or swelling Cardiovascular: Negative for chest pain, palpitations, and edema Respiratory: Negative for shortness of breath, cough, and wheezing, Abdomen/GI: Negative for abdominal pain, nausea, vomiting, diarrhea, and constipation Back: Negative for injury and pain : Negative for injury, bleeding and discharge MS/Extremity: Negative for injury and deformity Skin: Negative for rash, and discoloration Neuro: Negative for headache, numbness, tingling, and seizure positive for wea kness Psych: Negative for suicide ideation, homicidal ideation, and hallucinations Initial Vital Sign VS Vital Signs Date Time Temp Pulse Resp B/P (MAP) Pulse Ox O2 Delivery O2 Flow Rate FiO2 08/20/25 00:14 98.1 79 18 151/53 97 Room Air 0 08/20/25 01:10 21 Physical Exam Dictation Vital Signs reviewed General Appearance: Alert, oriented x 3, no acute distress, well developed, nourished. Head and Face: non-traumatic. Eyes: PERRL, pink conjunctivas, eyelid no trauma, anterior chamber with arcus senilis. Ears: Pinnas intact and no signs of trauma or erythema ear canals clear and no discharge TM no erythema Nose: No discharge, no bleeding. Oropharynx: Mouth normal, tongue pink. pharynx clear,no erythema, tonsils no exudates, no abscesses noted, mucous membrane moist Neck: Supple, non-tender, no thyromegaly, no masses, no JVD, no bruits Breast:Deferred Chest:No tenderness, no crepitus, no paradoxical movement, no retractions Lungs:Clear, well-ventilated, symmetric, no rales, no wheezing, no rhonchi, no stridor, good breath sounds bilaterally Heart: Regular rate, regular rhythm, no murmur, no gallops Vascular: no peripheral edema, Abdomen: Soft, positive bowel sounds, nondistended, no guarding, nontender, no rebound, no masses no hepatomegaly, no splenomegaly, no Cardoza's sign, no hernias. Rectal: Deferred Genital: Deferred Neurological: Normal speech, motor function intact, sensory function intact , upper extremities equal in strength, lower extremities equal in strength Musculoskeletal: Neck nontender, full range of motion, back nontender, full range of motion, Extremities: nontender, full range of motion Skin: Color pink, dry, no turgor, no rash, no lacerations, no abrasions, no contusions. Lymphatic: Deferred Results (Laboratory/Radiology) Laboratory/Radiology Laboratory Tests Test 08/20/25 01:10 08/20/25 01:27 Urine Color COLORLESS (YELLOW) Urine Appearance CLEAR (CLEAR) Urine pH 6.5 (5.0-8.0) Urine Specific [place] 1.008 (1.001-1.031) Urine Protein NEGATIVE mg/dL (NEGATIVE) Urine Glucose (UA) NEGATIVE mg/dL (NEGATIVE) Urine Ketones NEGATIVE mg/dL (NEGATIVE) Urine Occult Blood NEGATIVE (NEGATIVE) Urine Nitrate NEGATIVE (NEGATIVE) Urine Bilirubin NEGATIVE mg/dL (NEGATIVE) Urine Urobilinogen 0.2 mg/dL (0.2-1.0) Urine Leukocyte Esterase NEGATIVE Edilia/uL Influenza Type A Antigen Negative For Type A Influenza Type B Antigen Negative For Type B SARS-CoV-2 Antigen (Rapid) PRESUMPTIVE NEGATIVE White Blood Count 7.6 K/uL (4.8-10.8) Red Blood Count 3.87 MIL/uL (4.00-5.50) L Hemoglobin 12.5 g/dL (12.0-16.0) Hematocrit 38.8 % (36-48) Mean Corpuscular Volume 100.3 fL (79-99) H Mean Corpuscular Hemoglobin 32.3 pg (27.0-33.0) Mean Corpuscular Hemoglobin Concent 32.2 g/dL (32.0-36.0) Red Cell Distribution Width 12.9 % (11.0-15.5) Platelet Count 202 K/uL (130-400) Mean Platelet Volume 9.4 fL (7.5-10.5) Immature Granulocyte % (Auto) 0.4 % (0-1) Neutrophils (%) (Auto) 69.1 % (40.0-77.0) Lymphocytes (%) (Auto) 19.1 % (21.0-51.0) L Monocytes (%) (Auto) 9.0 % (3.0-13.0) Eosinophils (%) (Auto) 2.0 % (0.0-8.0) Basophils (%) (Auto) 0.4 % (0.0-5.0) Neutrophils # (Auto) 5.2 K/uL (1.8-7.7) Lymphocytes # (Auto) 1.4 K/uL (1.0-4.8) Monocytes # (Auto) 0.7 K/uL (0.1-1.0) Eosinophils # (Auto) 0.15 K/uL (0.00-0.70) Basophils # (Auto) 0.03 K/uL (0.00-0.20) Absolute Immature Granulocyte (auto 0.03 K/uL (0-1) Nucleated Red Blood Cells 0.0 % (0.0-0.19) Sodium Level 139 mmol/L (136-145) Potassium Level 3.7 mmol/L (3.5-5.1) Chloride Level 99 mmol/L (101-111) L Carbon Dioxide Level 29 mmol/L (21-32) Blood Urea Nitrogen 12 mg/dL (7-18) Creatinine 0.7 mg/dL (0.5-1.0) Glomerular Filtration Rate Calc 89 mL/min (>90) Random Glucose 118 mg/dL (70-105) H Total Calcium 9.0 mg/dL (8.5-10.1) Total Bilirubin 0.2 mg/dL (0.2-1.0) Aspartate Amino Transf (AST/SGOT) 21 U/L (10-37) Alanine Aminotransferase (ALT/SGPT) 24 U/L (12-78) Alkaline Phosphatase 36 U/L (50-136) L Total Creatine Kinase 99 U/L (21-232) # Troponin I High Sensitivity 5 ng/L (4-50) Total Protein 7.3 g/dL (6.0-8.3) Albumin 4.3 g/dL (3.5-5.0) REASON: cp ORDERING PHYSICIAN: QUINN VEGA PROCEDURE: CXR1VW - CHEST 1VW EXAM: CR Chest, 1 view CLINICAL HISTORY: Chest pain. COMPARISON: Chest radiograph dated 03/25/2025. FINDINGS: The lungs show no infiltrates or other acute findings. No pleural effusion or pneumothorax. The cardiomediastinal silhouette is within normal limits. No acute osseous abnormality. IMPRESSION: No acute cardiopulmonary process is evident. Compared to the prior study, there is no significant interval change. /[place] Labs Reviewed?: Yes EKG: (+) rhythm (Sinus rhythm) EKG Comment: Date:08/20/2025 Time:0103 Ventricular rate:85 [place] interval:149 QRS duration:74 QT/QTc:356/423 EKG interpretation: Sinus rhythm Reviewed by ED Attending no STEMI ED Course ED Course Orders Procedure Category Date Status Time Cbc With Differential LAB 08/20/25 Complete 00:39 Comprehensive LAB 08/20/25 Complete Metabolic Panel 00:39 Troponin I High LAB 08/20/25 Complete Sensitivity 00:39 Urinalysis Profile LAB 08/20/25 Complete 00:39 12 Lead Ekg Tracing- EKG 08/20/25 Logged Technical 00:39 Creatine Kinase, Total LAB 08/20/25 Complete 00:39 Chest 1vw RAD 08/20/25 Resulted 00:39 Covid19 (Sars Antigen LAB 08/20/25 Complete Rapid) 00:39 Influenza Type A & B, LAB 08/20/25 Complete Rapid 00:39 0.9%Nacl 1000ml (Ns PHA 08/20/25 In Process 1000ml) 01:30 Current Medications Medications (Trade) Dose Ordered Sig/Te Route PRN Reason Start Time Stop Time Status Last Admin Dose Admin Sodium Chloride 1,000 ml @ 125 mls/hr ONCE ONCE IV 08/20/25 01:30 08/20/25 09:29 08/20/25 01:35 Vital Signs Date Time Temp Pulse Resp B/P (MAP) Pulse Ox O2 Delivery O2 Flow Rate FiO2 08/20/25 01:10 98.2 78 19 152/66 99 Room Air* 0 21 08/20/25 00:14 98.1 79 18 151/53 97 Room Air 0 Medical Decision Making MDM The patient is a 79-year-old female with a history of hypertension and diabetes who presents to the emergency department via EMS with complaints of generalized body weakness this started last night. Patient reports that she feels like she has urinary less frequently. Denies any nausea or vomiting. Denies any diarrhea. Denies any upper respiratory symptoms. Denies chest pain or shortness of breath CBC showed no leukocytosis, no anemia, chemistry showed mild hypochloremia, urinalysis unremarkable, chest x-ray was unremarkable. On physical exam patient is in no acute distress, neurologically intact. Stable vital signs. Patient will be discharged to follow up with PCP. Differential diagnosis: Upper respiratory infection, pneumonia, dehydration, acute kidney injury Need for hospitalization: Patient does not meet criteria for hospitalization. There are no social concerns with this patient. DX & DISP Disposition: Discharge Departure Impression: Primary Impression: Wellness examination Condition: Stable Additional Instructions: Your labs and x-ray were unremarkable. Please follow up with your primary doctor in 1-2 days FOLLOW-UP WITH PRIMARY CARE PROVIDER IN 1 TO 2 DAYS. TAKE MEDICATIONS DIRECTED HERE IN THE EMERGENCY ROOM. OKAY TO CONTINUE HOME MEDICATIONS UNLESS OTHERWISE DISCUSSED DURING YOUR VISIT IN THE EMERGENCY ROOM TODAY. RETURN TO YOUR NEAREST EMERGENCY ROOM IF SYMPTOMS WORSEN OR IF THERE IS NO IMPROVEMENT. CALL 911 IF YOU NEED IMMEDIATE ASSISTANCE. TAKE TYLENOL [id number] NEEDED AND IF NO CONTRAINDICATIONS ARE PRESENT. INCREASE ORAL HYDRATION. A WOUND CULTURE OR URINE CULTURE WAS ORDERED HERE IN THE EMERGENCY ROOM DEPARTMENT PLEASE FOLLOW-UP WITH PRIMARY CARE PROVIDER AND ADVISE THEM TO GET REPEAT PORTS FROM OUR FACILITY. IF YOU HAD ANY VERONICA WRAP/SPLINTS THAT WERE APPLIED HERE, PLEASE DO NOT REMOVE THEM UNTIL YOU SEE YOUR PRIMARY CARE OR SPECIALTY. Referrals: RITA COBOS MD (PCP) Time of Disposition: 03:02 I have reviewed the case, and I agree with, Diagnosis and Plan QUINN VEGA [employer] SPECIALIST Aug 20, 2025 01:36
[2025-08-20 01:52] LABS: CREATININE 0.7 mg/dL (0.5-1.0); GLOMERULAR FILTR. RATE CALC 89.0 mL/min (>90); GLUCOSE,RANDOM 118.0 mg/dL (70-105); SODIUM SERUM 139.0 mmol/L (136-145); UREA NITROGEN, BLOOD 12.0 mg/dL (7-18)
[2025-08-20 01:57] LABS: ASPARTATE AMINOTRANSFERASE 21.0 U/L (10-37); CREATINE KINASE, TOTAL 99.0 U/L (21-232); TOTAL PROTEIN, SERUM 7.3 g/dL (6.0-8.3)
[2025-08-20 01:59] LABS: COVID19 (SARS ANTIGEN RAPID) PRESUMPTIVE NEGATIVE (NEGATIVE); INFLUENZA TYPE A Negative For Type A (NEGATIVE); INFLUENZA TYPE B Negative For Type B (NEGATIVE)
--- NOTE | 2025-08-20 02:12 | HMCIMG ---
EXAM: CR Chest, 1 view CLINICAL HISTORY: Chest pain. COMPARISON: Chest radiograph dated 03/25/2025. FINDINGS: The lungs show no infiltrates or other acute findings. No pleural effusion or pneumothorax. The cardiomediastinal silhouette is within normal limits. No acute osseous abnormality. IMPRESSION: No acute cardiopulmonary process is evident. Compared to the prior study, there is no significant interval change. /[place]
[2025-08-20 03:58] VITALS: BP 148/62; PULSE 75; RESP 16; O2SAT 99
--- NOTE | 2025-08-20 06:58 | EKG ---
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
== END 2025-08-20 03:59 | disposition home or self-care (01) ==
LOC: EDH 00:13
DX: R53.1 Weakness (principal); E11.9 Type 2 diabetes mellitus without complications; I10 Essential (primary) hypertension; Z20.822 Contact with and (suspected) exposure to COVID-19; Z79.84 Long term (current) use of oral hypoglycemic drugs; Z79.899 Other long term (current) drug therapy; Z88.5 Allergy status to narcotic agent; Z90.89 Acquired absence of other organs
CPT/HCPCS: 99285; 96360; 71045; 87426; 82550; 84484; 80053; 85025; 87804 ×2; 81003; 36415; 93005; J7030